=== PATIENT | female | born 1990 | race Caucasian/White ===

== ENCOUNTER 2018-04-06 19:38 | Emergency (ER) | payer BC, OTHER ==
[2018-04-06] MEDS ORDERED: diPHENhydraMINE IV* 50 MG/ML 1 ml VIAL (BENADRYL) IV ONE (22:54)
[2018-04-06] MEDS ORDERED: Ketorolac INJ* 30 MG/ML 1 ML VIAL IV ONE (22:54)
[2018-04-06] MEDS ORDERED: NS 0.9% 1000 ML* 1,000 ML IV ONE (22:54)
[2018-04-06] MEDS ORDERED: Metoclopramide IV* 5 MG/ML 2 ML VIAL IV ONE (22:54)
[2018-04-07 00:43] VITALS: BP 108/58
--- NOTE | 2018-04-07 05:42 | ED ---
Negrita Cordoba Jacob, scribed for Renee Ricketts MD on 04/07/18 at 0007 . Headache - HPI Summary HPI Summary: Pt is a 28 y/o female w/ c/o HAs. She reports that she received a concussion 9 days ago due to falling and hitting her head on the grass. She did not go to the hospital for this. Pt reports tension headaches and fatigue since head injury, with coworkers describing her as, "Seeming out of it". HAs have worsened since onset, ranked 3/10 on triage. Pt notes that she does not normally get HAs and did not take medication for HAs. She denies vomiting but reports some nausea. Per triage, pt has photophobia but denies LOC and tinnitus. - History Of Current Complaint Chief Complaint: EDHeadache Stated Complaint: HEADACHE/BLURRED VISION Time Seen by Provider: 04/06/18 22:14 Hx Obtained From: Patient Hx Last Menstrual Period: 03/23/18 Onset/Duration: Started days ago - 9 days ago, Still Present Currently Pain Is: Current Pain Scale(0-10)= - 6/10, Moderate Timing: Constant Character: Typical Headache - "tension" Aggravating Factor: Bright Lights, Other - per triage, looking at a computer Allevating Factors: Nothing Associated Signs And Symptoms: Nausea, Other (Noted In Comments) - NEGATIVE: vomiting, tinnitus, LOC Related History: Recent Trauma: - hit head on ground covered w/ grass 9 days ago - Allergies/Home Medications Allergies/Adverse Reactions: Allergies Allergy/AdvReac Type Severity Reaction Status Date / Time No Known Allergies Allergy Verified 04/06/18 19:44 Home Medications: Home Medications NK [No Home Medications Reported] 04/06/18 [History Confirmed 04/06/18] PMH/Surg Hx/FS Hx/Imm Hx Endocrine/Hematology History: Denies: Hx Diabetes Cardiovascular History: Denies: Hx Hypertension Neurological History: Denies: Hx Headaches - Surgical History Surgery Procedure, Year, and Place: no surgical history Infectious Disease History: No Infectious Disease History: Denies: Traveled Outside the [place] in Last 30 Days - Family History Known Family History: Positive: Hypertension - paternal grandfather Negative: Diabetes - Social History Alcohol Use: None Substance Use Type: Reports: None Smoking Status (MU): Never Smoked Tobacco Review of Systems Positive: Fatigue Positive: Photophobia - per triage Positive: Other - NEGATIVE: tinnitus Positive: Nausea. Negative: Vomiting Positive: Headache All Other Systems Reviewed And Are Negative: Yes Physical Exam - Summary Physical Exam Summary: VITAL SIGNS: Reviewed. GENERAL: Patient is a well-developed and nourished female who is lying comfortable in the stretcher. Patient is not in any acute respiratory distress. HEAD AND FACE: No signs of trauma. No ecchymosis, hematomas or skull depressions. No sinus tenderness. EYES: PERRLA, EOMI x 2, No injected conjunctiva, no nystagmus. EARS: Hearing grossly intact. Ear canals and tympanic membranes are within normal limits. MOUTH: Oropharynx within normal limits. NECK: Supple, trachea is midline, no adenopathy, no JVD, no carotid bruit, no c- spine tenderness, neck with full ROM. CHEST: Symmetric, no tenderness at palpation LUNGS: Clear to auscultation bilaterally. No wheezing or crackles. CVS: Regular rate and rhythm, S1 and S2 present, no murmurs or gallops appreciated. ABDOMEN: Soft, non-tender. No signs of distention. No rebound no guarding, and no masses palpated. Bowel sounds are normal. EXTREMITIES: FROM in all major joints, no edema, no cyanosis or clubbing. NEURO: Alert and oriented x 3. No acute neurological deficits. Speech is normal and follows commands. SKIN: Dry and warm Triage Information Reviewed: Yes Vital Signs On Initial Exam: Initial Vitals Temp Pulse Resp BP Pulse Ox 98.9 F 78 18 125/73 100 04/06/18 19:40 04/06/18 19:40 04/06/18 19:40 04/06/18 19:40 04/06/18 19:40 Vital Signs Reviewed: Yes - Chris Coma Scale Best Eye Response: 4 - Spontaneous Best Motor Response: 6 - Obeys Commands Best Verbal Response: 5 - Oriented Coma Scale Total: 15 Diagnostics - Vital Signs Vital Signs Temp Pulse Resp BP Pulse Ox 04/06/18 22:43 67 100/62 100 04/06/18 22:13 75 115/66 100 04/06/18 21:41 99.2 F 73 16 108/61 100 04/06/18 19:40 98.9 F 78 18 125/73 100 - Laboratory Lab Statement: Any lab studies that have been ordered have been reviewed, and results considered in the medical decision making process. - CT CT Head CT Interpretation: No Acute Changes CT Interpretation Completed By: Radiologist - Normal brain. No acute intracranial abnormality. No hemorrhage. No visible infract or mass. Osseous structures are intact. Physician reviewed this, pending official report Re-Evaluation - Re-Evaluation First Eval Re-Evaluation Time: 00:00 Comment: CT head results were discussed w/ pt. Headache Course/Dx - Course Assessment/Plan: Pt is a 28 y/o female w/ c/o HAs. She reports that she received a concussion 9 days ago due to falling and hitting her head on the grassy ground. She did not go to the hospital for this injury. Pt reports tension headaches and fatigue since head injury w/ HAs worsening since onset. Pt notes that she does not normally get HAs and did not take medication for HAs. CT head was ordered which returned normal. Results were discussed w/ pt. She refused medication for HAs and was discharged home. Allergies noted. - Diagnoses Provider Diagnoses: Headache, Head injury Discharge - Sign-Out/Discharge Documenting (check all that apply): Discharge/Admit/Transfer - discharge - Discharge Plan Condition: Stable Disposition: HOME Patient Education Materials: Head Injury (ED), Acute Headache (ED) Referrals: No Primary Care Phys,NOPCP [Primary Care Provider] - [facility] [place] [facility]FERRAL [Outside] - 2 Days Additional Instructions: Return to ED for any new or worsening symptoms. The documentation as recorded by the Negrita briggs Jacob accurately reflects the service I personally performed and the decisions made by me, Renee Ricketts MD.
--- NOTE | 2018-04-07 07:48 | RAD ---
Indication: Head injury. CT of the brain was performed without IV contrast. Ventricular structures are midline. No midline shift is noted. The extra-axial spaces are unremarkable. There is no evidence of intracranial mass or hemorrhage. No other high or low density lesions are identified. Mastoid air cells and paranasal sinuses are otherwise unremarkable. IMPRESSION: There is no evidence of intracranial mass or hemorrhage.
== END 2018-04-07 00:42 | disposition home or self-care (01) ==
LOC: ED 19:38
DX: S09.90XA Unspecified injury of head, initial encounter (principal); R51 Headache; R53.83 Other fatigue; H53.149 Visual discomfort, unspecified; R11.0 Nausea; W19.XXXA Unspecified fall, initial encounter; Y92.9 Unspecified place or not applicable
CPT/HCPCS: 70450; 96374; 96375; 99282; J1200; J1885; J2765